=== PATIENT | male | born 1955 | race Caucasian/White ===

== ENCOUNTER 2021-09-04 12:23 | Emergency (ER) | payer OTHER, SELFPAY ==
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
[2021-09-04 12:43] VITALS: BP 166/113; PULSE 84; RESP 18; TEMP 36.7; O2SAT 97; BMI 31.4
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
== END 2021-09-04 17:56 | disposition home or self-care (01) ==
PROVIDERS: Emergency Provider Emergency Medicine; PCP Internal Medicine
DX: S13.4XXA Sprain of ligaments of cervical spine, initial encounter (principal); M54.2 Cervicalgia; V43.52XA Car driver injured in collision with other type car in traffic accident, initial encounter; Y93.9 Activity, unspecified; Y92.410 Unspecified street and highway as the place of occurrence of the external cause; Y99.9 Unspecified external cause status; F17.200 Nicotine dependence, unspecified, uncomplicated; Z71.6 Tobacco abuse counseling
CPT/HCPCS: 72125; 99281; 99284